=== PATIENT | female | born 1990 | race Caucasian/White ===

== ENCOUNTER 2019-05-29 16:08 | Emergency (ER) | payer BC ==
[~2019-05-29] VITALS: Ht 160 cm; Wt 57.2 kg
--- NOTE | 2019-05-29 17:41 | NUR ---
Patient discharged to home in stable conditon. Written and verbal after care instructions given. Patient verbalizes understanding of instructions.
[2019-05-29 17:42] VITALS: BP 102/67
== END 2019-05-29 17:43 | disposition home or self-care (01) ==
LOC: ER 16:11
DX: J02.8 Acute pharyngitis due to other specified organisms (principal); B97.89 Other viral agents as the cause of diseases classified elsewhere
CPT/HCPCS: 36415; 86403; 87070; A4663